=== PATIENT | female | born 1995 | race Caucasian/White ===

== ENCOUNTER 2020-02-11 14:26 | Emergency (ER) | payer SELFPAY ==
[~2020-02-11] VITALS: Ht 157.5 cm; Wt 47.6 kg
[2020-02-11 14:35] VITALS: BP 116/40
--- NOTE | 2020-02-11 14:35 | NUR ---
ED Nurse Note: Patient walked into ED from home c/o right flank pain radiating to right lower abdomen started yesterday. Denies dysuria and urinary frequency/ urgency. Denies nausea/ vomiting. Afebrile. Breathing even and unlabored. No SOB. Pt placed on hospital monitor. ERPA at bedside.
--- NOTE | 2020-02-11 14:40 | NUR ---
ED Nurse Note: IV line established. Blood and urine specimen collected and sent to lab.
[2020-02-11] MEDS ORDERED: Omnipaque-300 100ml vial INJ PRN (14:45)
[2020-02-11] MEDS ORDERED: Ketorolac 30mg Inj IV ONE (14:45)
[2020-02-11] MEDS ORDERED: Morphine Sulfate 2mg/ml Inj(IV/IM USE ONLY) IVP ONE (14:45)
[2020-02-11 15:16] LABS: APPEARANCE,URINE SLIGHTLY CLOUDY; BILIRUBIN, URINE NEGATIVE (NEGATIVE); COLOR,URINE YELLOW; GLUCOSE, URINE (UA) 3+ (NEGATIVE); KETONES,URINE 1+ (NEGATIVE); LEUKOCYTE ESTERASE ,URINE 2+ (NEGATIVE); NITRITE,URINE POSITIVE (NEGATIVE); PH,URINE 5 (4.5-8.0); PROTEIN,URINE 3+ (NEGATIVE); UROBILINOGEN,URINE NORMAL MG/DL (0.0-1.0)
[2020-02-11 15:19] LABS: BASOPHILS % (AUTO) 0.4 % (0.0-2.0); HEMATOCRIT 39.3 % (37.0-47.0); HEMOGLOBIN 12.3 G/DL (12.0-16.0); LYMPHOCYTES % (AUTO) 11.1 % (20.0-45.0); MEAN CORPUSCULAR VOLUME 90 FL (80-99); MONOCYTES % (AUTO) 5.5 % (1.0-10.0); PLATELET COUNT 180 K/UL (150-450); RED BLOOD COUNT 4.36 M/UL (4.20-5.40); RED CELL DISTRIBUTION WIDTH 13.8 % (11.6-14.8); WHITE BLOOD COUNT 10.8 K/UL (4.8-10.8)
[2020-02-11 15:32] LABS: ANION GAP 11 mmol/L (5-15); BLOOD UREA NITROGEN 14 mg/dL (7-18); CALCIUM 8.7 MG/DL (8.5-10.1); CARBON DIOXIDE 23 MMOL/L (21-32); CHLORIDE 101 MMOL/L (98-107); CREATININE 1.1 MG/DL (0.55-1.30); POTASSIUM 3.3 MMOL/L (3.5-5.1); SODIUM 134 MMOL/L (136-145)
[2020-02-11 15:37] LABS: ALANINE AMINOTRANSFERASE 16 U/L (12-78); ALBUMIN 3.2 G/DL (3.4-5.0); ALBUMIN/GLOBULIN RATIO 0.8 (1.0-2.7); ALKALINE PHOSPHATASE 60 U/L (46-116); ASPARTATE AMINO TRANSFERASE 16 U/L (15-37); BILIRUBIN,TOTAL 0.5 MG/DL (0.2-1.0)
[2020-02-11 15:38] LABS: CREATINE KINASE 23 U/L (26-308)
--- NOTE | 2020-02-11 15:43 | NUR ---
ED Nurse Note: Pt was taken to CT via murali.
[2020-02-11] MEDS ORDERED: cefTRIAXone 1 GM in NS 55 ML IVPB ONE (15:45)
--- NOTE | 2020-02-11 16:00 | NUR ---
ED Nurse Note: Pt returned from CT.
--- NOTE | 2020-02-11 16:32 | Emergency Room Report ---
History of Present Illness General Chief Complaint: General Complaint Source: Patient Present Illness HPI 25-year-old female with history of right-sided pyelonephritis x1 year here complaining of a 10 out of 10 right flank pain now radiating to right lower quadrant. Patient reports that she is from [place] and arrived to [place] 2 days ago. Reports that about a year ago she had another episode of pyelonephritis as she landed in [place] via airplane. Reports that this pain feels the same. Denies any history of renal stones. Complains of chills and fever however denies nausea vomiting. Denies diarrhea constipation, chest pain , shortness of breath, headache or dizziness. Denies any hematuria. Denies . Complains of dysuria. Reports that she smokes cigarettes daily and marijuana. Denies any alcohol intake. Allergies: Coded Allergies: No Known Allergies (Unverified , 02/11/20) COVID-19 Screening Contact w/high risk pt: No Recent Travel to affected area: No Experienced COVID-19 symptoms?: No COVID-19 Testing performed SHANK CUTTER: No Patient History Past Medical History: see triage record Past Surgical History: none Pertinent Family History: none Last Menstrual Period: 02/05/2020 Now: No Immunizations: UTD Reviewed Nursing Documentation: PMH: Agreed; PSxH: Agreed Nursing Documentation-PMH Past Medical History: No Stated History Review of Systems All Other Systems: negative except mentioned in HPI Physical Exam Vital Signs Date Time Temp Pulse Resp B/P (MAP) Pulse Ox O2 Delivery O2 Flow Rate FiO2 02/11/20 14:29 99.0 97 15 116/40 (65) 100 Room Air Sp02 EP Interpretation: reviewed, normal General Appearance: alert, GCS 15, non-toxic, mild distress Head: normocephalic, atraumatic Eyes: bilateral eye normal inspection, bilateral eye PERRL ENT: hearing grossly normal, normal pharynx, no angioedema, normal voice Neck: full range of motion, supple/symm/no masses Respiratory: chest non-tender, lungs clear, normal breath sounds, no rhonchi, speaking full sentences Cardiovascular #1: regular rate, rhythm, no edema Gastrointestinal: normal bowel sounds, non tender, soft, non-distended, no guarding, no rebound Rectal: deferred Genitourinary: CVA tenderness (R) Musculoskeletal: back normal, no calf tenderness Neurologic: alert, oriented Psychiatric: judgement/insight normal, memory normal, mood/affect normal, no suicidal/homicidal ideation Skin: no rash Lymphatic: no adenopathy Medical Decision Making PA Attestation All my diagnosis and treatment plans were reviewed ad discussed with my supervising physician Dr. Zurita Diagnostic Impression: Primary Impression: Pyelonephritis ER Course 25-year-old female with history of right-sided pyelonephritis x1 year here complaining of a 10 out of 10 right flank pain now radiating to right lower quadrant. Patient reports that she is from [place] and arrived to [place] 2 days ago. Reports that about a year ago she had another episode of pyelonephritis as she landed in [place] via airplane. Reports that this pain feels the same. Denies any history of renal stones. Complains of chills and fever however denies nausea vomiting. Denies diarrhea constipation, chest pain , shortness of breath, headache or dizziness. Denies any hematuria. Denies . Complains of dysuria. Reports that she smokes cigarettes daily and marijuana. Denies any alcohol intake. Ddx considered but are not limited to: appendicitis, pyelonephritis, renal stone , cholecystis, gastritis, Vital signs: are WNL, pt. is afebrile H&PE are most consistent with: Pyelonephritis ORDERS: abdominal CT, abdominal pain set, Keflex, Zofran, ibuprofen, tylenol 3 ED INTERVENTIONS: NS bolus, Zofran, Rocephin, morphine DISCHARGE: At this time pt. is stable for d/c to home. Will provide printed patient care instructions, and any necessary prescriptions. Care plan and follow up instructions have been discussed with the patient prior to discharge. Patient will prefer to be discharged at this time follow-up primary doctor patient is going back to [place] this Wednesday. Patient will be compliant with taking oral antibiotics and oral hydration. Patient stable at time of discharge without any fever and chills and vital signs are within normal limits. CT/MRI/US Diagnostic Results CT/MRI/US Diagnostic Results : Imaging Test Ordered: CT abdomen pelvis with contrast Impression COMPARISON: No relevant prior studies available. FINDINGS: Lung bases: Unremarkable. No consolidation. No effusions. ABDOMEN: Liver: Liver is enlarged, with a cranial caudal diameter of 22 cm. No focal liver lesions. Gallbladder and bile ducts: Unremarkable. No calcified stones. No ductal dilation. Pancreas: Unremarkable. No mass. No ductal dilation. Spleen: Spleen is enlarged, with 20 caudal diameter of 13.18. No focal splenic lesions. Adrenals: Unremarkable. No mass. Kidneys and ureters: Abnormal striated right nephrogram with perinephric and periureteral stranding. Left kidney and ureter appear unremarkable. No hydronephrosis. Stomach and bowel: Mild wall thickening throughout the descending and sigmoid colon, concerning for a mild colitis. Mild fecal retention throughout the rectosigmoid, suggesting mild constipation. Remainder of the colon appears unremarkable. No abnormally distended loops of small bowel. GE junction and stomach appear unremarkable. PELVIS: Appendix: No findings to suggest acute appendicitis. Bladder: Unremarkable. No visible stones. Reproductive: Uterus appears retroverted. Uterus and ovaries otherwise have an unremarkable noncontrast appearance. ABDOMEN and PELVIS: Intraperitoneal space: Mild volume of free fluid in the pelvic cul-de-sac, likely physiologic. No free air. Bones/joints: No acute fracture. No dislocation. Soft tissues: Unremarkable. Vasculature: Unremarkable. No abdominal aortic aneurysm. Lymph nodes: Unremarkable. No enlarged lymph nodes. IMPRESSION: 1. Findings concerning for right-sided pyelonephritis. No hydronephrosis. 2. Mild wall thickening throughout the descending and sigmoid colon, concerning for a mild colitis. 3. Hepatosplenomegaly. 4. Mild volume of free fluid in the pelvic cul-de-sac, likely physiologic. 5. Mild fecal retention throughout the rectosigmoid, suggesting mild constipation. Last Vital Signs Date Time Temp Pulse Resp B/P (MAP) Pulse Ox O2 Delivery O2 Flow Rate FiO2 02/11/20 15:21 99.0 02/11/20 14:35 97 15 Room Air 02/11/20 14:35 116/40 100 Disposition: HOME, SELF-CARE Condition: Stable Referrals: NON PHYSICIAN (PCP) Patient Instructions: Urinary Tract Infection, [id number] Additional Instructions: Patient will prefer to be discharged at this time follow-up primary doctor patient is going back to [place] this Wednesday. Patient will be compliant with taking oral antibiotics and oral hydration. Patient stable at time of discharge without any fever and chills and vital signs are within normal limits. Follow-up with primary doctor, if worsening symptoms return to the emergency room Norma Gomez Feb 11, 2020 16:32
--- NOTE | 2020-02-11 16:50 | Diagnostic Imaging Report ---
EXAM: CT Abdomen and Pelvis With Intravenous Contrast CLINICAL HISTORY: PAIN TECHNIQUE: Axial computed tomography images of the abdomen and pelvis with intravenous contrast. Sagittal and coronal reformatted images were created and reviewed. CTDI is 3.10 mGy and DLP is 160.90 mGy-cm. One or more of the following dose reduction techniques were used: automated exposure control, adjustment of the mA and/or kV according to patient size, use of iterative reconstruction technique. COMPARISON: No relevant prior studies available. FINDINGS: Lung bases: Unremarkable. No consolidation. No effusions. ABDOMEN: Liver: Liver is enlarged, with a cranial caudal diameter of 22 cm. No focal liver lesions. Gallbladder and bile ducts: Unremarkable. No calcified stones. No ductal dilation. Pancreas: Unremarkable. No mass. No ductal dilation. Spleen: Spleen is enlarged, with 20 caudal diameter of 13.18. No focal splenic lesions. Adrenals: Unremarkable. No mass. Kidneys and ureters: Abnormal striated right nephrogram with perinephric and periureteral stranding. Left kidney and ureter appear unremarkable. No hydronephrosis. Stomach and bowel: Mild wall thickening throughout the descending and sigmoid colon, concerning for a mild colitis. Mild fecal retention throughout the rectosigmoid, suggesting mild constipation. Remainder of the colon appears unremarkable. No abnormally distended loops of small bowel. GE junction and stomach appear unremarkable. PELVIS: Appendix: No findings to suggest acute appendicitis. Bladder: Unremarkable. No visible stones. Reproductive: Uterus appears retroverted. Uterus and ovaries otherwise have an unremarkable noncontrast appearance. ABDOMEN and PELVIS: Intraperitoneal space: Mild volume of free fluid in the pelvic cul-de- sac, likely physiologic. No free air. Bones/joints: No acute fracture. No dislocation. Soft tissues: Unremarkable. Vasculature: Unremarkable. No abdominal aortic aneurysm. Lymph nodes: Unremarkable. No enlarged lymph nodes. IMPRESSION: 1. Findings concerning for right-sided pyelonephritis. No hydronephrosis. 2. Mild wall thickening throughout the descending and sigmoid colon, concerning for a mild colitis. 3. Hepatosplenomegaly. 4. Mild volume of free fluid in the pelvic cul-de-sac, likely physiologic. 5. Mild fecal retention throughout the rectosigmoid, suggesting mild constipation.
[2020-02-11] MEDS ORDERED: ACETAMINOPHEN-1 EAC1 ORAL (17:15)
[2020-02-11] MEDS ORDERED: IBU800 MG PO (17:15)
[2020-02-11] MEDS ORDERED: ZOFRAN4 M1 ORAL (17:15)
[2020-02-11] MEDS ORDERED: CEPHALEXIN500 MG ORAL (17:15)
[2020-02-11 17:18] VITALS: BP 122/78
--- NOTE | 2020-02-11 17:18 | NUR ---
ED Nurse Note: Pt cleared by ERMD for discharge. DC instructions/prescription was given and explained to pt and verbalized understanding of teachings. All medical deviecs such as ID band and IV line removed. Pt is AAO x4, ambulatory and left with all personal belongings. P/u by s/o.
== END 2020-02-11 17:18 | disposition home or self-care (01) ==
LOC: EMR 14:45
DX: N12 Tubulo-interstitial nephritis, not specified as acute or chronic (principal); R16.2 Hepatomegaly with splenomegaly, not elsewhere classified
CPT/HCPCS: 36415; 74177; 80053; 81003; 81025; 82550; 85025; 85610; 85730; 87086; 87181; 96361; 96365; 96375; 99284; J0696; J2270; J2405; J7030; Q9967